=== PATIENT | male | born 1985 | race Caucasian/White ===

== ENCOUNTER 2019-06-04 23:51 | Outpatient (CLI) | payer OTHER | END 2019-06-04 23:52 | disposition critical access hospital (66) | LOC: EMS 23:51 | PROVIDERS: ATTEND Surgery | DX: S06.9X1A Unspecified intracranial injury with loss of consciousness of 30 minutes or less, initial encounter (principal); R09.89 Other specified symptoms and signs involving the circulatory and respiratory systems; S61.213A Laceration without foreign body of left middle finger without damage to nail, initial encounter; V29.9XXA Motorcycle rider (driver) (passenger) injured in unspecified traffic accident, initial encounter; Y92.414 Local residential or business street as the place of occurrence of the external cause | CPT/HCPCS: A0425; A0429 ==

== ENCOUNTER 2019-06-05 00:07 | Emergency (ER) | payer OTHER ==
[2019-06-05] MEDS ORDERED: SODIUM CHLORIDE 0.9% 1,000 ML IV ONE (00:13)
[2019-06-05 00:20] LABS: BASOPHILS # (AUTO) 0.1 10^3/uL (0.0-0.1); BASOPHILS % (AUTO) 0.6 %; EOSINOPHILS % (AUTO) 0.4 %; LYMPHOCYTES # (AUTO) 4.7 10^3/uL (1.5-3.5); LYMPHOCYTES % (AUTO) 46.2 %; MEAN CORPUSCULAR HEMOGLOBIN 30.9 pg (27.0-31.0); MEAN CORPUSCULAR HGB CONC 34.6 g/dL (32.0-36.0); MEAN CORPUSCULAR VOLUME 89.4 fL (80.0-94.0); MEAN PLATELET VOLUME 11.4 fL (7.4-11.4); MONOCYTES # (AUTO) 0.9 10^3/uL (0.0-1.0); MONOCYTES % (AUTO) 8.5 %; NEUTROPHILS # (AUTO) 4.4 10^3/uL (1.5-6.6); NEUTROPHILS % (AUTO) 43.2 %; PLT - PLATELET COUNT 197 10^3/uL (130-450); RED BLOOD COUNT 5.17 10^6/uL (4.70-6.10); RED CELL DISTRIBUTION WIDTH 12.7 % (12.0-15.0); WHITE BLOOD COUNT 10.3 x10^3/uL (4.8-10.8)
[2019-06-05] MEDS ORDERED: BUFFERED LIDOCAINE 10 ML SYRINGE SUBQ STA (00:23)
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
[2019-06-05 00:30] LABS: INR 1.1 (0.8-1.2); PT - PROTHROMBIN TIME 11.9 secs (9.9-12.6)
[2019-06-05 00:33] LABS: ALBUMIN 4.2 g/dL (3.2-5.5); ALBUMIN/GLOBULIN RATIO 1.3 (1.0-2.2); BILIRUBIN,TOTAL 0.5 mg/dL (0.2-1.0); CALCIUM 8.9 mg/dL (8.5-10.3); CREATININE 0.9 mg/dL (0.6-1.2); TOTAL PROTEIN 7.4 g/dL (6.7-8.2)
[2019-06-05] MEDS ORDERED: IOVERSOL 320 100 ML VIAL IVP ONE ×2 (00:37→01:39)
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
[2019-06-05 01:08] LABS: MUDS CUTOFF CONCENTRATIONS CUTOFF CONC BELOW:
[2019-06-05 01:09] LABS: BILIRUBIN,URINE NEGATIVE (NEGATIVE); GLUCOSE, URINE (UA) NEGATIVE (NEGATIVE); KETONES,URINE (UA) NEGATIVE (NEGATIVE); LEUKOCYTE ESTERASE, URINE NEGATIVE (NEGATIVE); NITRITE,URINE NEGATIVE (NEGATIVE); OCCULT BLOOD,URINE NEGATIVE (NEGATIVE); PROTEIN,URINE NEGATIVE (NEGATIVE); UROBILINOGEN,URINE 0.2 (NORMAL) E.U./dL (NORMAL)
[2019-06-05] MEDS ORDERED: LORazepam 2 MG/ML VIAL IVP STA (01:14)
[2019-06-05] MEDS ORDERED: MORPHINE 2 MG/ML CARPUJECT IVP STA ×2 (01:14→02:22)
[2019-06-05 01:15] LABS: CLARITY,URINE CLEAR (CLEAR)
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
[2019-06-05] MEDS ORDERED: ONDANSETRON 4 MG/2 ML VIAL IVP STA (01:21)
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
[2019-06-05] MEDS ORDERED: ONDANSETRON 4 MG/2 ML VIAL ONE (01:28)
[2019-06-05 01:35] LABS: AMPHETAMINE SCREEN,URINE NEGATIVE (NEGATIVE); BENZODIAZEPINES SCREEN, URINE NEGATIVE (NEGATIVE); COCAINE SCREEN URINE NEGATIVE (NEGATIVE); METHADONE SCREEN, URINE NEGATIVE (NEGATIVE); METHAMPHETAMINES SCREEN, URINE NEGATIVE (NEGATIVE); OPIATE SCREEN, URINE NEGATIVE (NEGATIVE); OXYCODONE SCREEN, URINE NEGATIVE (NEGATIVE); PROPOXYPHENE SCREEN, URINE NEGATIVE (NEGATIVE); TRICYCLIC ANTIDEPRESSANT,URINE NEGATIVE (NEGATIVE)
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
[2019-06-05] MEDS ORDERED: ceFAZolin 1 GM in SODIUM CHLORIDE 0.9% MINIBAG 100 ML IV STA (02:48)
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
[2019-06-05 03:48] VITALS: BP 139/89
== END 2019-06-05 03:50 | disposition short-term general hospital (02) ==
LOC: EDUNIT# → ED 00:07
DX: F10.129 Alcohol abuse with intoxication, unspecified (principal); Y90.7 Blood alcohol level of 200-239 mg/100 ml; S01.81XA Laceration without foreign body of other part of head, initial encounter; S61.213A Laceration without foreign body of left middle finger without damage to nail, initial encounter; S01.312A Laceration without foreign body of left ear, initial encounter; S27.322A Contusion of lung, bilateral, initial encounter; V29.9XXA Motorcycle rider (driver) (passenger) injured in unspecified traffic accident, initial encounter; F17.200 Nicotine dependence, unspecified, uncomplicated
CPT/HCPCS: 12053; 36415; 70450; 71045; 71260; 72125; 73130; 74177; 80053; 80320; 81003; 83690; 85025; 85610; 93005; 96361; 96365; 96375; 96376; 99285; 99291; J2060; Q9967; 80306; 81001; 87086

== ENCOUNTER 2019-06-18 12:43 | Outpatient (CLI) | payer OTHER ==
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
== END 2019-06-18 12:44 | disposition home or self-care (01) ==
LOC: DI 12:43
PROVIDERS: ATTEND Nurse Practitioner Family
DX: S92.355A Nondisplaced fracture of fifth metatarsal bone, left foot, initial encounter for closed fracture (principal)

== ENCOUNTER 2020-03-26 19:22 | Outpatient (CLI) | payer OTHER | END 2020-03-26 23:59 | disposition E | LOC: EMS 19:22 | PROVIDERS: ATTEND Surgery | DX: V29.40XA Motorcycle driver injured in collision with unspecified motor vehicles in traffic accident, initial encounter; Y92.414 Local residential or business street as the place of occurrence of the external cause ==